=== PATIENT | female | born 1945 | race Caucasian/White ===

== ENCOUNTER 2016-10-06 05:08 | Inpatient (IN) | payer OTHER ==
[2016-09-10 11:23] VITALS: BMI 28.0
--- NOTE | 2016-09-10 11:49 | PAT Medication Instructions ---
Service Date Sep 10, 2016. Current Home Medication List Acetaminophen Tab (Tylenol), 650 MG PO PRN Ibuprofen (Advil), 400 MG PO PRN Ranitidine (Zantac), 150 MG PO HS PRN for Heartburn Medication Instructions For Your Scheduled Surgery - Hold the following medications morning of the surgery: Ibuprofen (Advil), 400 MG PO PRN (not told to stop by surgeon) - Take the following medications the morning of surgery with a sip of water: Acetaminophen Tab (Tylenol), 650 MG PO PRN (if needed) - Take the following medications as scheduled the night before surgery: Ranitidine (Zantac), 150 MG PO HS PRN for Heartburn Acetaminophen Tab (Tylenol), 650 MG PO PRN (if needed) If you have any questions please call us at [phone] or [phone] ( Leonie) or [phone]
[2016-09-10 12:20] LABS: PARTIAL THROMBOPLASTIN RATIO 1.1; PROTHROMBIN TIME (PATIENT) 10.7 SECONDS (9.0-12.0)
[2016-09-10 12:56] LABS: BUN/CREATININE RATIO 16.8 (10-20); CREATININE 0.85 mg/dl (0.60-1.20); POTASSIUM 3.9 mmol/L (3.5-5.1)
--- NOTE | 2016-09-11 11:04 | HISTORY & PHYSICAL EXAMINATION ---
DATE OF ADMISSION: 10/06/2016 CHIEF COMPLAINT: Left knee pain. HISTORY OF PRESENT ILLNESS: This 71-year-old female presents to clinic for preoperative history and physical. The patient complains of 5-10 year history of persistent left knee pain that has increased over the past several months with failed conservative treatment including physical therapy, viscosupplementation, nonsteroidal anti-inflammatory use and steroid injections. The patient states the pain is affecting her gait, causing her to limp at times. The patient also states that the pain is most severe in the morning when she wakes; however, she denies any numbness or tingling in the left lower extremity at this time. The patient states she previously had a right total knee arthroplasty performed by Dr. Bain in February 2016 and feels that it is doing very well. At this time, she denies chest pain, shortness of breath, fever, chills, sweats, nausea, vomiting or diarrhea. PAST SURGICAL HISTORY: Right total knee arthroplasty, right carpal tunnel release, tonsillectomy/adenoidectomy, wisdom tooth extraction, breast biopsy, cholecystectomy, left shoulder arthroscopy and bilateral cataract removal. PAST MEDICAL HISTORY: Gastroesophageal reflux and hyperlipidemia. FAMILY HISTORY: Father, colon cancer, coronary artery bypass grafting, and status post myocardial infarction. Mother, COPD. Sister, multiple sclerosis. ALLERGIES: The patient has no known drug allergies. CURRENT MEDICATIONS TAKEN: Ranitidine 75 mg oral tablet 1 tab twice daily and amoxicillin 500 mg oral tablet 4 tabs 1 hour prior to dental procedures. SOCIAL HISTORY: The patient denies any history of smoking, alcohol or illicit drug use. PHYSICAL EXAMINATION: SKIN: The patient's skin is normal in appearance with no open skin lesions or discharge. EYES: Pupils are equal and reactive to light and accommodating. Extraocular movements are intact. EARS: Canals are clear of cerumen. Tympanic membranes are intact bilaterally with no bulging or effusions. NOSE: Turbinates pink and boggy in appearance. No appreciable rhinorrhea. THROAT: Posterior oropharynx is clear without signs of edema, erythema or exudate. CARDIOVASCULAR: The patient has a regular rate and rhythm with no murmurs or gallops appreciated. LUNGS: Auscultation of the lung mullen reveals clear breath sounds throughout with no wheezing, rales or rhonchi. ABDOMEN: Minimally obese, nondistended, and nontender with hypoactive bowel sounds. EXTREMITIES: Left knee: The patient is able to extend 10 degrees and flex to 118 degrees. She has marked crepitation with active and passive range of motion. She experienced medial and lateral joint line tenderness upon palpation when the knee is placed in a flexed position. Her left patella is nonmobile due to arthritic changes within the patellofemoral joint. The patient does experience referred knee pain with dorsiflexion against resistance, left foot. Otherwise, there is no edema, erythema, ecchymosis, warmth or palpable bony deformity. No varus or valgus laxity. Negative AP drawer sign. Negative Tari test. Her left calf is soft and supple, nontender to palpation and she experiences no referred knee pain with plantar flexion against resistance. The patient is neurovascularly intact in her left lower extremity. Peripheral pulses are palpable and capillary refill is brisk. All other extremities are normal in appearance with appropriate range of motion and strength. NEUROLOGICAL: Cranial nerves II-XII are intact with no motor or sensory deficit. PSYCHOLOGICAL AND GENERAL: The patient is alert and oriented x3 with proper grooming and hygiene. DIAGNOSIS: Left knee osteoarthritis. PROCEDURE: Left total knee arthroplasty. RADIOGRAPHIC IMAGING: Images show an end-stage tricompartmental degenerative arthritis of the right knee joint with [id number] contact. PLAN: The patient is scheduled to undergo this procedure with Dr. Devon Bain at [facility] on 10/06/2016. Risks and complications of the surgery such as infection, bleeding, pain, scarring, nerve and blood vessel damage, weakness, wound problems, stiffness, incomplete relief of symptoms, heart attack, stroke, , hardware failure, loosening wear fracture, blood clots, and embolism were explained to the patient. She understands and agrees. Written consent to perform the procedure was obtained. We will also obtain a preoperative medical clearance from the patient's primary care provider, Dr. Yeung along with a chest x-ray, EKG, PT, INR, PTT, complete metabolic panel and CBC with differential. The patient states she will obtain the necessary testing today before preanesthesia clearance appointment. The patient states that she has a walker at home from her previous right total knee arthroplasty and will bring it with her to the hospital on the day of surgery. The patient was advised that her postoperative followup with Dr. Bain will be scheduled for 10/20/2016 at 02:00 p.m. The patient states that she will do her physical therapy at [facility] for 2 weeks postoperatively and then will continue in the physical therapy department at [facility] for 4-6 additional weeks. The patient was advised that she will be on Coumadin for 6 weeks postoperatively and she will be provided with prescriptions for the medication upon discharge from the hospital. She will also use CLAIRE stockings for 6 weeks to help prevent blood clots and embolism. The patient will need biweekly INR checks while she is on the Coumadin therapy. She was also advised that she will be provided with [place] for postoperative pain medication upon discharge from the hospital. The patient was given paperwork for a handicap placard that she may obtain for her vehicle after surgery. The patient states she did not need this after her last knee replacement, but states that she will discuss this with her daughter and decide whether they will obtain one. Otherwise, the patient verbalized understanding of all information provided at today's visit, thanks us for the care she is receiving at our clinic and states that if she has additional questions or concerns that should arise prior to her scheduled procedure date, she will contact the clinic.
[2016-10-06] VITALS (11 sets, daily range): BP systolic 114–158; BP diastolic 74–85; PULSE 80–94; TEMP 36.3–36.5; O2SAT 2–100; Ht 165.1 cm; Wt 77.5 kg
[~2016-10-06] VITALS: Ht 165.1 cm; Wt 77.5 kg
[~2016-10-06 05:08] MED LIST: ACET325T96 PO; IBUP-1050 PO; ZNTT/150 PO
[2016-10-06] MEDS ORDERED: BUPIVACAINE LIPOSOME 266 MG, BUPIVACAINE/EPINEPHRINE INJ 50 ML, SODIUM CHLORIDE 0.9% PF... INFIL SCH ×3 (06:00)
[2016-10-06] MEDS ORDERED: TRAMADOL HCL 50 MG TAB PO SCH (06:00)
[2016-10-06] MEDS ORDERED: ACETAMINOPHEN 500 MG TAB PO SCH (06:00)
[2016-10-06] MEDS ORDERED: CeleBREX 200 MG CAP PO SCH (06:00)
[2016-10-06] MEDS ORDERED: OXYCODONE HCL 10 MG TABCR (OXYCONTIN) PO SCH (06:00)
[2016-10-06] MEDS: TRANEXAMIC ACID INJ 1,000 MG in SODIUM CHLORIDE 0.9% 100ML 100 ML IV SCH ×2 (06:00→06:30)
[2016-10-06] MEDS ORDERED: LACTATED RINGER'S 1000ML 1,000 ML IV SCH (06:00)
[2016-10-06] MEDS ORDERED: CLONIDINE HCL 0.1 MG/24 HR TRANSDERM SYS TD SCH (06:00)
[2016-10-06] MEDS ORDERED: CEFAZOLIN 1000MG/55 ML D5W 55 ML IV SCH (06:00)
[2016-10-06] MEDS ORDERED: DEXAMETHASONE 4 MG TAB PO SCH (06:00)
[2016-10-06] MEDS ORDERED: LACTATED RINGER'S 1000ML IV SCH (06:00)
[2016-10-06] MEDS ORDERED: GABAPENTIN 300 MG CAP PO SCH (06:00)
[2016-10-06] MEDS ORDERED: LACTATED RINGER'S 500 ML IV SCH (06:00)
[2016-10-06] MEDS ORDERED: BUPIVACAINE 0.5 % 5 MG/1 ML PF 10ML VIAL ONE (06:26)
[2016-10-06] MEDS ORDERED: FENTANYL CITRATE INJ 50 MCG/1 ML 2 ML VIAL ONE (06:38)
[2016-10-06] MEDS ORDERED: MIDAZOLAM HCL 1 MG/ML 2ML VIAL ONE (06:38)
[2016-10-06] MEDS ORDERED: BACITRACIN 50000 UNIT VIAL ONE (06:40)
[2016-10-06] MEDS ORDERED: SODIUM CHLORIDE 0.9% PF 50 ML VIAL ONE ×2 (06:40→07:40)
[2016-10-06] MEDS ORDERED: BUPIVACAINE/EPINEPHRINE 0.25% 1:200,000 30 ML VIAL ONE ×2 (06:40→07:40)
[2016-10-06] MEDS ORDERED: BUPIVACAINE LIPOSOME 1/3% 266 MG/20 ML VIAL INFIL ONE (06:41)
--- NOTE | 2016-10-06 06:41 | History & Physical Bridge Note ---
H&P Re-Evaluation Bridge Note: I have examined the patient, reviewed the History & Physical and in the interval since the performance of the History & Physical I have noted the following changes of clinical significance: No changes noted
[2016-10-06] MEDS ORDERED: BUPIVACAINE 0.25% 30 ML VIAL ONE (06:50)
[2016-10-06] MEDS ORDERED: EpHEDrine SULFATE INJ 50 MG/ML AMP IV PRN (07:15)
[2016-10-06] MEDS ORDERED: FENTANYL CITRATE INJ 50 MCG/1 ML 2 ML VIAL IV PRN (07:15)
[2016-10-06] MEDS ORDERED: LIDOCAINE HCL 2% 2 ML VIAL (20MG/ML) ONE (07:15)
[2016-10-06] MEDS ORDERED: ATROPINE SULFATE 0.1 MG/ML 5ML SYR IV PRN (07:15)
[2016-10-06] MEDS ORDERED: ONDANSETRON INJ 2 MG/ML 2 ML VIAL ONE (07:15)
[2016-10-06] MEDS ORDERED: ONDANSETRON INJ 2 MG/ML 2 ML VIAL IV PRN ×2 (07:15→09:45)
[2016-10-06] MEDS ORDERED: PROPOFOL IV EMULSION 10 MG/ML 20 ML VIAL IV ONE ×3 (07:15→09:05)
[2016-10-06] MEDS ORDERED: CEFAZOLIN SOD 1 GM VIAL ONE (07:35)
[2016-10-06] MEDS ORDERED: EpHEDrine SULFATE 50MG/5ML SYR ONE (08:44)
--- NOTE | 2016-10-06 09:32 | [facility] Post Operative Brief Note ---
Immediate Operative Summary Operative Date Oct 06, 2016. Pre-Operative Diagnosis Left Knee Osteoarthritis Post-Operative Diagnosis Left Knee Osteoarthritis Procedure(s) Performed Left Total Knee Arthroplasty Surgeon Dr. Devon Bain Batch Still Operator Surgeon(s) Samantha Rodriguez PA-C Estimated Blood Loss 20ML Findings medial knee OA Specimens A. Left Knee Bone and Tissue Drains 0 Anesthesia spinal with sedation Complication(s) None Disposition Recovery Room / PACU
--- NOTE | 2016-10-06 09:43 | [facility] Operative Report ---
Operative Report Operative Date Oct 06, 2016. Pre-Operative Diagnosis Left Knee Osteoarthritis Post-Operative Diagnosis Left knee osteoarthritis Procedure(s) Performed Left total knee arthroplasty Surgeon Dr. Devon Bain Identification Officer Surgeon(s) Samantha Rodriguez PA-C Estimated Blood Loss 20ML Findings DJD left knee Specimens A. Left Knee Bone and Tissue Drains 0 Anesthesia spinal with sedation Complication(s) None Disposition Recovery Room / PACU Indications Patient is a 71 year old female, with complaints of worsening left knee pain, failed conservative treatment. X-rays obtained, found to have Severe DJD left knee. Surgical intervention discussed, she wished to proceed with left total knee arthroplasty. Risks/complications discussed, informed consent obtained. Description of Procedure Patient was taken to the operating room, under spinal anesthesia with peripheral nerve block. She was given 2gm IV Ancef for surgical prophylaxis. Time out performed, prepped and draped in routine sterile fashion. I was present the entire case, please see Dr. Bain's operative report for further detail. Patient was awakened and taken to the recovery room in stable condition. I attest to the content of the Intraoperative Record and any orders documented therein. Any exceptions are noted below.
[2016-10-06] MEDS ORDERED: MoRPHine SULFATE 2 MG/ML CARP IV PRN (09:45)
[2016-10-06] MEDS ORDERED: ALUMINUM/MAGNESIUM/SIMETH (MAALOX MAX) 30 ML UDC PO PRN (09:45)
[2016-10-06] MEDS ORDERED: ACETAMINOPHEN 325 MG TAB PO PRN (09:45)
[2016-10-06] MEDS ORDERED: KETOROLAC TROMETHAMINE 30 MG/ML VIAL IV. PRN (09:45)
[2016-10-06] MEDS ORDERED: BISACODYL 10 MG SUPP PR PRN (09:45)
[2016-10-06] MEDS ORDERED: SOD PHOSPHATE/SOD BIPHOSPHATE ENEMA 132 ML BTL PR PRN (09:45)
[2016-10-06] MEDS ORDERED: MAGNESIUM HYDROXIDE SUSP 30 ML UDC PO PRN (09:45)
--- NOTE | 2016-10-06 10:18 | DIAGNOSTIC IMAGING REPORT ---
LEFT KNEE 1 OR 2 VIEWS ROUTINE CLINICAL HISTORY: Postop knee arthroplasty COMPARISON: None. DISCUSSION: There are postsurgical changes of total left knee arthroplasty and patellar resurfacing. The femoral and tibial components appear well seated. There are overlying skin enmanuel. There is air within the soft tissues consistent with the history of recent surgery. IMPRESSION: Postsurgical changes of a total left knee arthroplasty. Electronically signed by: Bret Fernando M.D. 10/06/2016 10:17 AM Dictated Date/Time: 10/06/2016 10:16 AM
--- NOTE | 2016-10-06 10:22 | Anesthesiology Progress Note ---
Anesthesia Post Op Note Date & Time Oct 06, 2016 at 10:22 Vital Signs Pain Intensity: 0 Vital Signs Past 12 Hours Date Time Temp Pulse Resp B/P Pulse Ox O2 Delivery O2 Flow Rate FiO2 10/06/16 10:10 68 14 116/66 100 Nasal Cannula 2 10/06/16 10:00 69 13 116/64 100 Nasal Cannula 2 10/06/16 09:50 71 11 113/66 100 Nasal Cannula 2 10/06/16 09:43 36.4 73 14 117/64 99 Nasal Cannula 2 10/06/16 05:55 36.5 80 18 158/83 97 Room Air Notes Mental Status: alert / awake / arousable, participated in evaluation Pt Amnestic to Procedure: Yes Nausea / Vomiting: adequately controlled Pain: adequately controlled Airway Patency, RR, SpO2: stable & adequate BP & HR: stable & adequate Hydration State: stable & adequate Neuraxial Anesthesia: was administered, sensory block is resolving Anesthetic Complications: no major complications apparent
--- NOTE | 2016-10-06 10:49 | OPERATIVE REPORT ---
DATE OF OPERATION: 10/06/2016 PREOPERATIVE DIAGNOSIS: Left knee arthritis. POSTOPERATIVE DIAGNOSIS: Same. PROCEDURE: Cemented left total knee arthroplasty. SURGEON: Dr. Bain. BIOINFORMATICS SUPPORT SPECIALIST: Samantha Rodriguez. No resident or fellow available. ANESTHESIA: Spinal with sedation and nerve block. INDICATIONS OF PROCEDURE: The patient is a 71-year-old female with severe osteoarthritis of her left knee medial compartment refractory to nonsurgical methods of management. She is status post a successful contralateral total knee replacement. PROCEDURE IN DETAIL: Informed consent was obtained. The patient identified as Swetha Vera. She identified the operative site as the left knee. I marked with my initials. A preop surgical time out was performed. A preop dose of IV antibiotics was given. She was taken to the operating room, positioned supine on the operating room table. Spinal anesthetic, nerve block and sedation were given. A tourniquet was applied to the left thigh. No Grover was inserted. The examination showed range 0/7/125. She had 1+ LCL laxity in mid position, 1+ MCL laxity in mid position. There is not any effusion, varus deformity was present. The left knee was then prepped and draped including the foot in the usual sterile fashion. DVT prophylaxis intraoperatively with foot pumps, postoperatively with early mobility. She received preoperative dose and postoperative dose of tranexamic acid. Exparel was injected into the knee at the conclusion of the operation using the moving needle technique throughout all the exposed tissues. Moist sponges were applied over the soft tissues and copious irrigation was performed to keep the soft tissues moist and healthy. A tourniquet was applied to the left thigh. The limb was exsanguinated with the Esmarch, tourniquet inflated to 225 mmHg. The tourniquet was let down after 90 minutes of inflation. Meticulous hemostasis was then performed. A midline incision was made approximately 20 cm in length mirroring the contralateral side. This was followed by medial parapatellar arthrotomy, medial release of the tibia, resection of marginal osteophytes, resection of the cruciate ligaments and menisci and release of the synovial reflection in the lateral gutter. The retropatellar fat pad was also resected. There were grade 3 changes of the patella with marginal osteophytes. The lateral compartment was fairly normal, but there were severe osteoarthritis with 2-2.5 cm diameter areas of eburnated bone in the medial compartment of the knee. The tibia was subluxated and a steamboat pilot hole was made into the proximal tibia in line with the shaft of the femur just anterior to the lateral tibial spine. The alignment guide was inserted and this was followed by pinning it in place after aligning it for a 10 mm resection laterally corresponding to a 2 mm resection medially. The extramedullary alignment lin was utilized confirming slope and alignment which intersected the second ray and bisected the ankle joint. A 0 degree block was utilized and the cut was made and sized to 2.5. Marginal osteophytes were removed. The lateral margin of the tibia was defined. The patellar tendon was protected. Sales Agent hole was drilled into the distal femur followed by insertion of the distal femoral cutting block, left knee 7 degree valgus, 12 mm thick cut. This cut was made and the extension gap was a symmetric 10. The transepicondylar axis and Whitesides line were marked out. The sizing block was applied and sized to a 3. The external rotation holes were made which corresponded to the epicondylar axis. The block was pinned into place and the cuts were made, protecting the collateral ligaments. The box cutting guide was applied, lateralized and that cut was made. The back of the knee was inspected for osteophytes which were removed medially and laterally. There were no loose bodies. The flexion gap was a trace bit lax on the lateral side by approximately 2 mm, but otherwise symmetric at 90 degrees. The trial femur was inserted. The tibia was aligned, pinned into place and the keel was drilled and punched. The trial polyethylene 10 mm thick was inserted. The patella was prepared using the patellar clamp. It measured 23.5 mm in thickness. The guide was set to preserve 14.5 mm of bone which ended up being about 13.5. Composite patellar thickness at the end of the case was 23.5 mm matching the previous. The patella was aligned, distalized and lateralized and the lug holes were drilled. Patellar tracking was fine with the no hands technique. The canals were plugged. Exparel was injected into the back of the knee. The bony surfaces were copiously irrigated with pulse lavage. They were then dried. Two bags of Simplex P cement were mixed and while in a doughy state, the femur, patella and tibia were cemented into place. The knee was held in full extension until the cement had hardened and the remainder of the Exparel was injected. Tourniquet was let down after 90 minutes of inflation. There was minimal bleeding which was then controlled with electrocautery. Trialing showed full extension, intact stability at full extension, 1+ laxity, LCL in mid position and trace LCL laxity about 2 mm at 90 degrees of flexion. The final polyethylene component was then inserted after irrigating the knee and inspecting the back of the knee for cement and bleeding. Patellar tracking was fine with the no hands technique. Irrigation was performed. The extensor mechanism was closed above the equator with interrupted #2 FiberWire and below the equator of the patella with running #1 locked Vicryl suture. The skin was closed in layers with 0 and 2-0 Vicryl and enmanuel on the skin. Leg was cleaned with wet and dry sponges and a soft sterile dressing was applied along with a full length Rik wrap from the toes to the hip. The gravity assisted flexion with the extensor mechanism closed was 125 degrees. The patient was awakened from anesthesia without difficulty, taken to recovery in stable condition. There were no complications. The resected bone was sent for specimen. Counts were correct at the end of case. Blood loss was approximately 20 mL. At the conclusion of the operation, I spoke to the patient's family and informed them of my findings. Postoperative instructions were given. She will plan on a 3-night stay to go to a long-term facility. She will be placed on Coumadin and will be rehabilitated according to the total knee rehab protocol. Components inserted were identical to the opposite side. J\T\J PFC sigma rotating platform knee, a size 3 left posterior stabilized femoral component, a size 2.5 keeled mobile bearing tibial tray, a 38 3 peg oval dome patella and a size 3 10 mm thick RP posterior stabilized polyethylene insert. Extraneous cement was removed from the knee. I attest to the content of the Intraoperative Record and any orders documented therein. Any exceptio ns are noted below.
[2016-10-06] MEDS: D5W AND 1/2NSS + 20MEQ KCL 1,000 ML IV SCH ×2 (12:13→20:58)
[2016-10-06] MEDS: CEFAZOLIN IV 1,000 MG in DEXTROSE 5% 50ML 50 ML IV SCH ×2 (13:30→22:20)
[2016-10-06] MEDS ORDERED: WARFARIN SOD 5 MG TAB PO SCH (16:00)
--- NOTE | 2016-10-06 16:39 | Orthopedic Progress Note ---
Orthopedic Progress Note Date of Service Oct 06, 2016. Subjective Reports: complaints, feeling well, Denies: SOB, calf pain, chest pain, nausea / vomiting Additional Notes: States has some mild pain and some dizziness with sitting or standing. tolerated regular diet for lunch. has not had pain medication. Objective calves soft nontender, N/V intact, capillary refill less than 2 sec., dressing C /D/I, A&O x3, toes mobile Knee immobilizer on left knee, foot pumps on lower extremities Date Time Temp Pulse Resp B/P Pulse Ox O2 Delivery O2 Flow Rate FiO2 10/06/16 15:00 36.5 94 16 119/74 98 Nasal Cannula 2.0 10/06/16 13:46 86 16 115/74 99 Nasal Cannula 2.0 10/06/16 12:53 90 16 125/80 100 Nasal Cannula 2.0 10/06/16 12:43 89 16 126/80 100 Nasal Cannula 2.0 10/06/16 11:45 83 16 146/85 100 Nasal Cannula 2.0 10/06/16 11:12 80 16 114/74 100 Nasal Cannula 2.0 10/06/16 11:10 36.3 81 16 121/76 95 Nasal Cannula 2.0 10/06/16 11:03 95 Nasal Cannula 2.0 10/06/16 10:59 95 Nasal Cannula 2.0 10/06/16 10:30 36.1 76 12 128/77 100 Nasal Cannula 2 10/06/16 10:20 36.1 73 12 132/68 100 Nasal Cannula 2 10/06/16 10:10 68 14 116/66 100 Nasal Cannula 2 10/06/16 10:00 69 13 116/64 100 Nasal Cannula 2 10/06/16 09:50 71 11 113/66 100 Nasal Cannula 2 10/06/16 09:43 36.4 73 14 117/64 99 Nasal Cannula 2 10/06/16 05:55 36.5 80 18 158/83 97 Room Air Assessment & Plan Assessment: Left TKA today with Dr. Bain Plan: Encouraged use of pain medication as needed. She states that she will take something after dinner. Encouraged ankle pumps and exercises in bed. PT/OT WBAT with knee immobilizer and walker when out of bed. Regular diet. post op x-rays reviewed Ice to knee as needed. Coumadin to start tonight for DVT prophylaxis along with Teds/AV impulse boots. Will recheck in AM. Plan for discharge to [facility] in 2-3 days. All questions answered, will discuss findings with Dr. Bain. Discharge Planning Discharge Planning: correction facility ([facility]) DVT Prophylaxis: Coumadin Therapy: Physical Therapy
[2016-10-06] MEDS: TRAMADOL HCL 50 MG TAB PO PRN (16:58)
[2016-10-06] MEDS: DOCUSATE SODIUM 100 MG CAP PO SCH (20:58)
[2016-10-06] MEDS: OXYCODONE HCL IR 5 MG TAB (IMMEDIATE RELEASE) PO PRN (21:03)
[2016-10-07] VITALS (9 sets, daily range): BP systolic 100–122; BP diastolic 59–79; PULSE 73–98; TEMP 36.4–37.1; O2SAT 87–99
[2016-10-07] MEDS: TRAMADOL HCL 50 MG TAB PO PRN ×3 (00:45→16:08)
[2016-10-07] MEDS: OXYCODONE HCL IR 5 MG TAB (IMMEDIATE RELEASE) PO PRN ×3 (01:39→20:37)
[2016-10-07 05:50] LABS: HEMATOCRIT 33.4 % (37-47); MEAN CELL VOLUME 87.4 fL (80-100); MEAN PLATELET VOLUME 10.4 fL (7.4-10.4); PLATELET COUNT 234 K/uL (130-400); RED BLOOD COUNT 3.82 M/uL (4.2-5.4); WHITE BLOOD COUNT 8.78 K/uL (4.8-10.8)
[2016-10-07 06:00] LABS: INR 1.1 (0.9-1.1); PROTHROMBIN TIME (PATIENT) 11.7 SECONDS (9.0-12.0)
[2016-10-07 06:25] LABS: BUN/CREATININE RATIO 15.4 (10-20); CALCIUM 8.2 mg/dl (8.5-10.1); CREATININE 0.76 mg/dl (0.60-1.20)
[2016-10-07] MEDS: D5W AND 1/2NSS + 20MEQ KCL 1,000 ML IV SCH (07:01)
[2016-10-07] MEDS ORDERED: DEXAMETHASONE 4 MG TAB PO SCH (07:30)
--- NOTE | 2016-10-07 08:10 | Discharge Instructions ---
Discharge Instructions Date of Service Oct 07, 2016. Admission Reason for Admission: Left Knee Osteoarthritis Discharge Discharge Diagnosis / Problem: Left knee DJD Discharge Goals Goal(s): Decrease discomfort, Improve function, Increase independence Activity Recommendations Activity Level: Assistance Required Therapies: Physical Therapy, Weight Bearing Status (WBAT LLE) Weightbearing Status: Left weightbearing (as tolerated) . Additional Information Patient informed of condition: Yes Advance Directives: No DNR: No Level of Care: [facility] ([facility]) Communicable Disease: No Prognosis: Stable Instructions / Follow-Up Instructions / Follow-Up New Medicine: * You will likely be taking one or more of these medications: 1. Coumadin (Warfarin) - You will be on Coumadin for 6 weeks after surgery to prevent blood clots. The PT/INR blood test which measures the "thinness" of your blood will need to be done every Wednesday and while on Coumadin. My office will contact you after every test to tell you how much Coumadin to take. If you do not hear from my office within 24 hours of the test, please call. Do not take anti-inflammatory pills (Advil or Aleve) while on Coumadin. Aspirin, 81 mg is OK. 2. Percocet - Take, as directed, when you need it, every four to six hours to control your pain. 3. Colace & Senokot - Take to prevent constipation which can be caused by narcotics. These can be bought [id number] at the pharmacy * The most common side effects of pain medicine and iron are nausea and constipation. If nausea or constipation is too much of a problem or if you have any questions about your new medicines or doses, call [facility] at . We will try to help you manage these issues. VERY IMPORTANT TO READ AND REVIEW" Blood Clots and Blood Thinning Medicine: * You are given Coumadin during the immediate post-operative period to lessen the risk of blood clots forming in your legs and/or lungs. Coumadin is usually given for six weeks after surgery. * The prescription is for 2 mg tablets. At discharge, you should understand your dose and take it all at the same time every day, preferably after dinner. * You need to get your blood checked every Wednesday and for six weeks or as directed. * If your dose needs to change, we will call you. Do not take your medication on the day of the blood test until we call you. Physical Therapy: * Do your physical therapy at home. These are the exercises you learned while in the hospital (quad sets, leg raises, calf pumps, gluteal squeezes, knee bending, and heel props.) You should do these exercises 3-4 times per day. * You will either go to inpatient rehab ([facility]), home with Home Therapy and nursing or home with outpatient rehab. You should do rehab with the therapist 2-3 times per week. You should do therapy on your own daily. * You may bear full weight on your leg with crutches or walker unless otherwise advised. Home Exercise: * You were shown a series of exercises (heel props, heel slides, etc.) in the hospital. Do these exercises three to four times each day including the exercises you were shown in physical therapy. Walking: * You may be up for short periods of time. Standing and walking for 1-2 hours at a time is usually okay. You should not stand or walk for excessive periods of time as this may cause increased pain and swelling. SELF CARE INSTRUCTIONS AFTER TOTAL KNEE REPLACEMENT A. You may need to continue a physical therapy program after discharge from the hospital. There are several options available to you. Your doctor will assist you in selecting the best one for you. 1. An out-patient facility 2 to 3 times a week for therapy or home therapy. 2. Continue working on all exercises taught to you in the hospital. Your goals should be to increase bending of your knee to 90 degrees and beyond and to fully straighten your knee. B. Your therapist will notify you when you are able to progress from a walker to a cane. C. Wear TEDS as much as possible.~ They may be removed at night for laundering. D. Do not place a pillow behind your knee when resting. A pillow at your ankle is okay. E. Ice your knee 15-20 minutes every 2-3 hours and elevate it above the level of your heart. F. You may shower on the fourth day after surgery using regular soap and water. Do not submerge until the wound is completely healed (approximately 2 weeks ). Until the fourth day after surgery, cover the incision/bandage with a bag or plastic wrap. G. Anyone who is touching your surgical incision area should wash their hands and wear gloves. H. Keep your incision covered with gauze pads under the CLAIRE hose until it is dry. VERY IMPORTANT TO READ AND REVIEW A. YOU WILL BE GIVEN AN ORDER AT DISCHARGE FOR PT/INR (BLOOD WORK). PLEASE HAVE THIS DONE INSTRUCTED. PLEASE CALL OUR OFFICE AFTER YOUR BLOODWORK IS COMPLETE SO WE CAN TRACK YOUR RESULTS. IF YOU ARE GOING TO OUTPATIENT PHYSICAL THERAPY, YOU WILL NEED TO GO TO OUTPATIENT TESTING TO HAVE IT DRAWN. B. There are a few signs you need to watch for after you are home. Call [facility] if you notice any of the followin. Increased severe knee pain. Some pain is expected especially when you exercise. 2. Increased swelling in your leg or knee; pain or swelling of the calf muscle in either lower leg. 3. Any fluid drainage from the incision. 4. Shortness of breath or chest pain. 5. Numbness and tingling in the surgical extremity C. Please call [facility] at if you have any concerns or questions about your operation or recovery. The doctor or his nurse will return your call promptly. D. Do not have any elective dental work or other elective procedures done for 6 weeks after your knee replacement. When you have any invasive procedure (dental cleaning, extraction, colonoscopy etc) performed, you will need to take antibiotics to prevent infection from developing in your artificial joint. Tell your other health care providers you have an artificial joint. My office will supply you with further information and the antibiotics. Call your doctor if: * Temperature above 101 degrees F. * Pain not relieved by pain medicine ordered. * Increased drainage or redness from incision. * Notify your doctor with any questions or concerns. Follow-up Visit: You will follow-up with Dr. Bain 10-14 days after surgery. The office number is . Avoid all tobacco products. If you need help to stop smoking, call [place] at . This is a free call. Current Hospital Diet Patient's current hospital diet: Regular Diet Discharge Diet Recommended Diet: Regular Diet Procedures Procedures Performed: Left Total Knee Arthroplasty Pending Studies Studies pending at discharge: no Physician Orders On Transfer Dressing Changes: Daily and PRN left knee Vital Signs: per routine Additional Orders: STAT PT/INR every Wednesday and . Please call results to Dr. Bain's office [phone]. Medical Emergencies . Who to Call and When: Medical Emergencies: If at any time you feel your situation is an emergency, please call 911 immediately. . Non-Emergent Contact Non-Emergency issues call your: Surgeon Call Non-Emergent contact if: temperature is above 101.5, your pain is not controlled, your pain is concerning you, wound has increased drainage, wound has increased pain, you have any medication questions . . "Provider Documentation" section prepared by Samantha Rodriguez. Core Measure Problem Core Measures: None VTE Core Measures Reason no anticoag overlap I/P: Treatment provided - N/A Reason no anticoag overlap @DC: Treatment provided - N/A
[2016-10-07] MEDS ORDERED: ULT50X PO (08:13)
[2016-10-07] MEDS ORDERED: TYL325X PO (08:13)
[2016-10-07] MEDS ORDERED: MULT-589 PO (08:13)
[2016-10-07] MEDS ORDERED: CLC100 PO (08:13)
[2016-10-07] MEDS ORDERED: OXYC-57 PO (08:13)
[2016-10-07] MEDS ORDERED: MOMLX PO (08:13)
--- NOTE | 2016-10-07 08:22 | Orthopedic Progress Note ---
Orthopedic Progress Note Date of Service Oct 07, 2016. Subjective Post OP Day: 1 Reports: feeling well, pain controlled w PO medications, Denies: SOB, calf pain , chest pain, complaints, light headedness, nausea / vomiting Additional Notes: Tolerating regular diet, states having some pain this morning. Objective calves soft nontender, N/V intact, capillary refill less than 2 sec., dressing C /D/I, A&O x3, toes mobile unable to independently SLR left leg this morning due to pain. Date Time Temp Pulse Resp B/P Pulse Ox O2 Delivery O2 Flow Rate FiO2 10/07/16 07:18 96 Nasal Cannula 1.0 10/07/16 07:18 36.4 89 18 100/59 87 Room Air 10/07/16 07:00 Nasal Cannula 1.0 10/07/16 03:30 37.1 73 16 107/67 98 Nasal Cannula 2.0 10/07/16 00:16 36.8 81 16 115/70 99 Nasal Cannula 2.0 10/06/16 22:10 Nasal Cannula 2.0 10/06/16 19:00 36.4 89 18 125/77 98 Nasal Cannula 2.0 10/06/16 15:00 36.5 94 16 119/74 98 Nasal Cannula 2.0 10/06/16 13:46 86 16 115/74 99 Nasal Cannula 2.0 10/06/16 12:53 90 16 125/80 100 Nasal Cannula 2.0 10/06/16 12:43 89 16 126/80 100 Nasal Cannula 2.0 10/06/16 11:45 83 16 146/85 100 Nasal Cannula 2.0 10/06/16 11:12 80 16 114/74 100 Nasal Cannula 2.0 10/06/16 11:10 36.3 81 16 121/76 95 Nasal Cannula 2.0 10/06/16 11:03 95 Nasal Cannula 2.0 10/06/16 10:59 95 Nasal Cannula 2.0 10/06/16 10:30 36.1 76 12 128/77 100 Nasal Cannula 2 10/06/16 10:20 36.1 73 12 132/68 100 Nasal Cannula 2 10/06/16 10:10 68 14 116/66 100 Nasal Cannula 2 10/06/16 10:00 69 13 116/64 100 Nasal Cannula 2 10/06/16 09:50 71 11 113/66 100 Nasal Cannula 2 10/06/16 09:43 36.4 73 14 117/64 99 Nasal Cannula 2 Laboratory Results 24 Hours: Test 10/07/16 05:15 Hematocrit 33.4 % Hemoglobin 10.7 g/dL Prothromb Time International Ratio 1.1 Prothrombin Time 11.7 SECONDS Assessment & Plan Assessment: POD 1 Left TKA Plan: Encouraged ankle pumps and exercises in bed. PT/OT today WBAT with knee immobilizer and walker when out of bed. Regular diet. Ice to knee as needed. Coumadin for DVT prophylaxis along with Teds/AV impulse boots. Plan for discharge to [facility] in 2-3 days. All questions answered, will discuss findings with Dr. Bain. Discharge Planning Discharge Planning: senior living facility ([facility]) DVT Prophylaxis: Coumadin Therapy: Physical Therapy
[2016-10-07] MEDS: MULTIVITAMIN TAB PO SCH (09:26)
[2016-10-07] MEDS: DOCUSATE SODIUM 100 MG CAP PO SCH ×2 (09:26→20:37)
[2016-10-07] MEDS: PANTOprazole SOD 40 MG TAB PO SCH (09:27)
--- NOTE | 2016-10-07 09:54 | Anesthesiology Progress Note ---
Anesthesia Post Op Note Date & Time Oct 07, 2016 at 09:53 Vital Signs Vital Signs Past 12 Hours Date Time Temp Pulse Resp B/P Pulse Ox O2 Delivery O2 Flow Rate FiO2 10/07/16 07:18 96 Nasal Cannula 1.0 10/07/16 07:18 36.4 89 18 100/59 87 Room Air 10/07/16 07:00 Nasal Cannula 1.0 10/07/16 03:30 37.1 73 16 107/67 98 Nasal Cannula 2.0 10/07/16 00:16 36.8 81 16 115/70 99 Nasal Cannula 2.0 10/06/16 22:10 Nasal Cannula 2.0 Notes Mental Status: alert / awake / arousable, participated in evaluation Pt Amnestic to Procedure: Yes Nausea / Vomiting: adequately controlled Pain: adequately controlled Airway Patency, RR, SpO2: stable & adequate BP & HR: stable & adequate Hydration State: stable & adequate Neuraxial Anesthesia: was administered, sensory block resolved Anesthetic Complications: no major complications apparent
--- NOTE | 2016-10-07 12:45 | PROGRESS NOTE ---
DATE: 10/07/2016 DATE: 10/07/2016. SUBJECTIVE: No problems reported. Resting comfortably in bed. She has been up with PT and nursing. OBJECTIVE: Afebrile, vital signs stable. Urine output is adequate. Labs are noted. Hematocrit 33. INR 1.1. Dorsalis pedis is 1+. Sensation normal, 5/5 ankle and toe plantar flexion and dorsiflexion strength. Her knee dressing clean and dry. IMPRESSION: Left knee replacement. PLAN: She is doing well. Continue to rehab per protocol. She has required IV pain medications to manage her pain as oral medications have not been sufficient. Lovenox will be added for DVT prophylaxis to supplement her subtherapeutic INR. We discussed plans for Jeremiah Klein. Plan on dressing change tomorrow. Continue ice, elevation, pain control, DVT prophylaxis.
[2016-10-07] MEDS ORDERED: WARFARIN SOD 5 MG TAB PO SCH (16:00)
[2016-10-07] MEDS: ENOXAPARIN 30 MG/0.3 ML SYR SQ SCH (18:09)
[2016-10-07] MEDS: CeleBREX 200 MG CAP PO SCH (20:37)
[2016-10-08] MEDS: OXYCODONE HCL IR 5 MG TAB (IMMEDIATE RELEASE) PO PRN ×5 (00:55→23:54)
[2016-10-08 05:53] LABS: INR 1.5 (0.9-1.1); PROTHROMBIN TIME (PATIENT) 16.6 SECONDS (9.0-12.0)
[2016-10-08 07:05] VITALS: BP 138/77; PULSE 92; TEMP 36.6; O2SAT 95
[2016-10-08] MEDS: ENOXAPARIN 30 MG/0.3 ML SYR SQ SCH ×2 (07:10→18:38)
[2016-10-08] MEDS: DOCUSATE SODIUM 100 MG CAP PO SCH ×2 (08:47→20:36)
[2016-10-08] MEDS: CeleBREX 200 MG CAP PO SCH ×2 (08:47→20:37)
[2016-10-08] MEDS: MULTIVITAMIN TAB PO SCH (08:47)
[2016-10-08] MEDS: PANTOprazole SOD 40 MG TAB PO SCH (08:47)
[2016-10-08] MEDS: TRAMADOL HCL 50 MG TAB PO PRN ×2 (08:52→20:36)
--- NOTE | 2016-10-08 09:20 | Progress Note ---
Orthopedic SOAP Note Subjective Date of Service: Oct 08, 2016. Post OP Day: 2 Reports: feeling well, pain controlled w PO medications, Denies: SOB, calf pain , chest pain, complaints, light headedness, nausea / vomiting, using PRODUCT DEVELOPMENT SPECIALIST Additional Notes: Reports less pain today Objective calves soft nontender, N/V intact, capillary refill less than 2 sec., dressing C /D/I, incision C/D/I, A&O x3, toes mobile Date Time Temp Pulse Resp B/P Pulse Ox O2 Delivery O2 Flow Rate FiO2 10/08/16 07:05 36.6 92 16 138/77 95 Room Air 10/08/16 00:50 Room Air 10/07/16 23:00 36.9 87 14 108/68 90 Room Air 10/07/16 20:50 93 Room Air 10/07/16 15:42 37.0 98 16 107/66 90 Room Air 10/07/16 11:24 94 93 10/07/16 11:21 36.8 86 16 122/79 94 Room Air 10/07/16 11:00 94 Room Air Laboratory Results 24 Hours: Test 10/08/16 05:10 Prothromb Time International Ratio 1.5 Prothrombin Time 16.6 SECONDS Assessment POD 2 Left TKA Plan Encouraged ankle pumps and exercises in bed. PT/OT today WBAT with knee immobilizer and walker when out of bed. Regular diet. pain control with PO medication Ice to knee as needed. Coumadin for DVT prophylaxis along with Teds/AV impulse boots. Plan for discharge to [facility] 10/09/16 All questions answered, will discuss findings with Dr. Bain.
[2016-10-08 15:12] VITALS: BP 119/75; PULSE 75; TEMP 36.6; O2SAT 96
[2016-10-08] MEDS ORDERED: WARFARIN SOD 3 MG TAB PO SCH (16:00)
--- NOTE | 2016-10-08 17:29 | PROGRESS NOTE ---
DATE: 10/08/2016 No problems reported, mild medial calf pain. Afebrile, vital signs stable. INR 1.5. She has trace pretibial edema. There is mild soreness of the medial calf. Perhaps some mild discomfort with Homans. There is no erythema. 1+ dorsalis pedis, 5/5 distal motor function. The knee is mildly swollen. No notable drainage or erythema. Left knee replacement. PLAN: Monitor calf pain for now. I think there is low likelihood that this would represent a DVT. It is fairly close to the back of the knee and could just be discomfort related to the posterior capsule. Continue Lovenox until her INR is therapeutic. Continue routine post-surgical care and PT. We will reassess tomorrow.
[2016-10-08 23:30] VITALS: BP 114/69; PULSE 92; TEMP 37; O2SAT 91
[2016-10-09 06:04] LABS: INR 1.5 (0.9-1.1); PROTHROMBIN TIME (PATIENT) 16.8 SECONDS (9.0-12.0)
[2016-10-09] MEDS: ENOXAPARIN 30 MG/0.3 ML SYR SQ SCH (06:37)
[2016-10-09] MEDS: OXYCODONE HCL IR 5 MG TAB (IMMEDIATE RELEASE) PO PRN (06:41)
[2016-10-09 06:59] VITALS: BP 106/66; PULSE 88; TEMP 36.7; O2SAT 91
[2016-10-09 08:10] VITALS: BP 118/70; PULSE 84; TEMP 36.9; O2SAT 95
[2016-10-09] MEDS ORDERED: LVNIS30 SQ (08:10)
[2016-10-09] MEDS ORDERED: CMD2 PO (08:10)
--- NOTE | 2016-10-09 08:25 | Progress Note ---
Orthopedic SOAP Note Subjective Date of Service: Oct 09, 2016. Post OP Day: 3 Reports: feeling well, pain controlled w PO medications, Denies: SOB, calf pain , chest pain, complaints, light headedness, nausea / vomiting, using CASTING AND PASTING SUPERVISOR Additional Notes: reports some calf tightness bilaterally, nothing new or worse, will order ultrasound prior discharge to r/o DVT, otherwise calves are soft, minimal tenderness, no swelling or erythema, NVI distally Objective calves soft nontender (more "tightness" versus painful. will order ultrasound accordingly prior today's transfer), N/V intact, capillary refill less than 2 sec., dressing C/D/I, incision C/D/I, A&O x3, toes mobile unable to complete straight leg raise fully, will continue to progress accordingly Date Time Temp Pulse Resp B/P Pulse Ox O2 Delivery O2 Flow Rate FiO2 10/09/16 08:10 36.9 84 17 118/70 95 Room Air 10/09/16 06:59 36.7 88 17 106/66 91 Room Air 10/08/16 23:50 Room Air 10/08/16 23:30 37.0 92 18 114/69 91 Room Air 10/08/16 15:12 36.6 75 18 119/75 96 Room Air 10/08/16 11:30 Room Air Laboratory Results 24 Hours: Test 10/09/16 05:11 Prothromb Time International Ratio 1.5 Prothrombin Time 16.8 SECONDS Assessment POD 3 Left TKA Plan Encouraged ankle pumps and exercises in bed. PT/OT today WBAT with knee immobilizer during ambulation and until quad function regained, use walker Regular diet. pain control with PO medication Ice to knee as needed. Coumadin for DVT prophylaxis along with Teds/AV impulse boots. Will required Lovenox as well over the weekend, INR subtherapeutic Plan for discharge to [facility] 10/09/16 All questions answered, will discuss findings with Dr. Bain. lower extremity ultrasound ordered regarding left calf pain/tightness to r/o DVT prior patient's transfer today
[2016-10-09] MEDS: PANTOprazole SOD 40 MG TAB PO SCH (08:47)
[2016-10-09] MEDS: CeleBREX 200 MG CAP PO SCH (08:47)
[2016-10-09] MEDS: MULTIVITAMIN TAB PO SCH (08:47)
[2016-10-09] MEDS: DOCUSATE SODIUM 100 MG CAP PO SCH (08:47)
[2016-10-09] MEDS: TRAMADOL HCL 50 MG TAB PO PRN (08:48)
[2016-10-09 09:11] VITALS: O2SAT 95
--- NOTE | 2016-10-09 10:36 | DIAGNOSTIC IMAGING REPORT ---
ADDENDUM Body and conclusion of the report should say left calf. Electronically signed by: Luis Love M.D. 10/09/2016 11:08 AM Dictated Date/Time: 10/09/2016 11:08 AM ORIGINAL REPORT Venous Doppler left leg LEFT VENOUS DOPP LOWER EXT UNILAT CLINICAL HISTORY: left calf pain, s/p Left TKA pain TECHNIQUE: Venous Doppler COMPARISON STUDY: None FINDINGS: Normal venous Doppler left leg. Within the right calf is an 6 x 3 cm complex collection possibly representing hematoma. IMPRESSION: 1. Study is negative for deep venous thrombosis. 2. 6 x 3 cm complex collection within the right calf possibly representing a intramuscular hematoma Electronically signed by: Luis Love M.D. 10/09/2016 10:34 AM Dictated Date/Time: 10/09/2016 10:33 AM
[2016-10-09 11:50] VITALS: BP 120/76; PULSE 94; O2SAT 99
[2016-10-09 11:51] VITALS: BP 112/60; PULSE 92; TEMP 37; O2SAT 96
--- NOTE | 2016-10-09 16:32 | Discharge Summary ---
Discharge Summary Date of Service Oct 09, 2016. Discharge Summary Admission Date: Oct 06, 2016 at 06:45 Discharge Date: Oct 09, 2016 Discharge Disposition: residential facility ([facility]) Principal Diagnosis: DJD left knee Procedures: Left TKA Consultations: physical therapy Pending Studies/Follow-Up: Follow up with Dr. Bain 10-14 days after surgery as scheduled. Medication Reconciliation New Medications: Oxycodone/Acetaminophen 5MG/325MG (Percocet 5MG/325MG) Tab 1-2 TABLETS PO Q4H PRN for Pain, #30 TAB Warfarin Sod (Coumadin) 2 Mg Tab 4 MG PO DAILY for 42 Days, #50 Acetaminophen (Tylenol) 325 Mg Tab 650 MG PO Q6H PRN for PAIN/TEMP GREATER THAN 38 C for 30 Days, #240 TAB Docusate Sodium (Docusate Sodium) 100 Mg Cap 100 MG PO BID for 30 Days, #60 CAP Enoxaparin (Lovenox) 30 Mg/0.3 Ml Inj 30 MG SQ Q12@0600,1800 for 5 Days, #5 SYR 1 Refill Take until INR greater than 1.8 Magnesium Hydroxide (Milk of Magnesia) 30 Ml Susp 30 ML PO Q6H PRN for Constipation for 30 Days, #100 Multivitamins (Daily Gabby) 1 Tab Tab 1 TAB PO QAM for 30 Days, #30 TAB Tramadol HCl (Tramadol HCl) 50 Mg Tab 50-100 MG PO Q4H PRN for Pain for 3 Days, #30 TAB 0 Refills Continued Medications: Ranitidine (Zantac) 150 Mg Tab 150 MG PO HS PRN for Heartburn, TAB Discontinued Medications: Acetaminophen Tab (Tylenol) 325 Mg Tab 650 MG PO PRN, TAB Ibuprofen (Advil) 200 Mg Tab 400 MG PO PRN, TAB Hospital Course Patient is a 71 year old female who was admitted to the hospital after undergoing a left total knee arthroplasty with Dr. Bain on 10/06/16. She tolerated the procedure well without any complications. She was given IV Ancef for surgical prophylaxis, which was continued for 24 hours post operatively. Her surgery was completed with spinal anesthesia and a peripheral nerve block. Post operatively she was allowed out of bed, weight bear as tolerated left lower extremity with the assistance of a walker. Pain medication was prescribed for post operative pain control. She tolerated a regular diet post operatively. She tolerated oral pain medications. She was placed on Coumadin for DVT prophylaxis with Lovenox bridge until her INR was therapeutic. She also had CLAIRE stockings and foot pumps during her inpatient stay. She complained of some mild left calf pain during her hospital stay. An left lower extremity ultrasound was completed on POD 3 prior to her discharge and was negative for DVT but was positive for intramuscular hematoma. Dressing changes were started POD 2 and her incision was clean, dry and intact. She was seen and evaluated by physical therapy daily and did well with the assistance of a walker. Discharge instructions were provided and she was discharged to [facility] on 10/09/16 in stable condition. Total time spent on discharge = This includes examination of the patient, discharge planning, medication reconciliation, and communication with other providers. Discharge Instructions Discharge Instructions Date of Service Oct 07, 2016. Admission Reason for Admission: Left Knee Osteoarthritis Discharge Discharge Diagnosis / Problem: Left knee DJD Discharge Goals Goal(s): Decrease discomfort, Improve function, Increase independence Activity Recommendations Activity Level: Assistance Required Therapies: Physical Therapy, Weight Bearing Status (WBAT LLE) Weightbearing Status: Left weightbearing (as tolerated) . Additional Information Patient informed of condition: Yes Advance Directives: No DNR: No Level of Care: Skilled ([facility]) Communicable Disease: No Prognosis: Stable Instructions / Follow-Up Instructions / Follow-Up New Medicine: * You will likely be taking one or more of these medications: 1. Coumadin (Warfarin) - You will be on Coumadin for 6 weeks after surgery to prevent blood clots. The PT/INR blood test which measures the "thinness" of your blood will need to be done every Wednesday and while on Coumadin. My office will contact you after every test to tell you how much Coumadin to take. If you do not hear from my office within 24 hours of the test, please call. Do not take anti-inflammatory pills (Advil or Aleve) while on Coumadin. Aspirin, 81 mg is OK. 2. Percocet - Take, as directed, when you need it, every four to six hours to control your pain. 3. Colace & Senokot - Take to prevent constipation which can be caused by narcotics. These can be bought [id number] at the pharmacy * The most common side effects of pain medicine and iron are nausea and constipation. If nausea or constipation is too much of a problem or if you have any questions about your new medicines or doses, call [facility] at . We will try to help you manage these issues. VERY IMPORTANT TO READ AND REVIEW" Blood Clots and Blood Thinning Medicine: * You are given Coumadin during the immediate post-operative period to lessen the risk of blood clots forming in your legs and/or lungs. Coumadin is usually given for six weeks after surgery. * The prescription is for 2 mg tablets. At discharge, you should understand your dose and take it all at the same time every day, preferably after dinner. * You need to get your blood checked every Wednesday and for six weeks or as directed. * If your dose needs to change, we will call you. Do not take your medication on the day of the blood test until we call you. Physical Therapy: * Do your physical therapy at home. These are the exercises you learned while in the hospital (quad sets, leg raises, calf pumps, gluteal squeezes, knee bending, and heel props.) You should do these exercises 3-4 times per day. * You will either go to inpatient rehab ([facility]), home with Home Therapy and nursing or home with outpatient rehab. You should do rehab with the therapist 2-3 times per week. You should do therapy on your own daily. * You may bear full weight on your leg with crutches or walker unless otherwise advised. Home Exercise: * You were shown a series of exercises (heel props, heel slides, etc.) in the hospital. Do these exercises three to four times each day including the exercises you were shown in physical therapy. Walking: * You may be up for short periods of time. Standing and walking for 1-2 hours at a time is usually okay. You should not stand or walk for excessive periods of time as this may cause increased pain and swelling. SELF CARE INSTRUCTIONS AFTER TOTAL KNEE REPLACEMENT A. You may need to continue a physical therapy program after discharge from the hospital. There are several options available to you. Your doctor will assist you in selecting the best one for you. 1. An out-patient facility 2 to 3 times a week for therapy or home therapy. 2. Continue working on all exercises taught to you in the hospital. Your goals should be to increase bending of your knee to 90 degrees and beyond and to fully straighten your knee. B. Your therapist will notify you when you are able to progress from a walker to a cane. C. Wear TEDS as much as possible.~ They may be removed at night for laundering. D. Do not place a pillow behind your knee when resting. A pillow at your ankle is okay. E. Ice your knee 15-20 minutes every 2-3 hours and elevate it above the level of your heart. F. You may shower on the fourth day after surgery using regular soap and water. Do not submerge until the wound is completely healed (approximately 2 weeks ). Until the fourth day after surgery, cover the incision/bandage with a bag or plastic wrap. G. Anyone who is touching your surgical incision area should wash their hands and wear gloves. H. Keep your incision covered with gauze pads under the CLAIRE hose until it is dry. VERY IMPORTANT TO READ AND REVIEW A. YOU WILL BE GIVEN AN ORDER AT DISCHARGE FOR PT/INR (BLOOD WORK). PLEASE HAVE THIS DONE INSTRUCTED. PLEASE CALL OUR OFFICE AFTER YOUR BLOODWORK IS COMPLETE SO WE CAN TRACK YOUR RESULTS. IF YOU ARE GOING TO OUTPATIENT PHYSICAL THERAPY, YOU WILL NEED TO GO TO OUTPATIENT TESTING TO HAVE IT DRAWN. B. There are a few signs you need to watch for after you are home. Call [facility] if you notice any of the followin. Increased severe knee pain. Some pain is expected especially when you exercise. 2. Increased swelling in your leg or knee; pain or swelling of the calf muscle in either lower leg. 3. Any fluid drainage from the incision. 4. Shortness of breath or chest pain. 5. Numbness and tingling in the surgical extremity C. Please call [facility] at if you have any concerns or questions about your operation or recovery. The doctor or his nurse will return your call promptly. D. Do not have any elective dental work or other elective procedures done for 6 weeks after your knee replacement. When you have any invasive procedure (dental cleaning, extraction, colonoscopy etc) performed, you will need to take antibiotics to prevent infection from developing in your artificial joint. Tell your other health care providers you have an artificial joint. My office will supply you with further information and the antibiotics. Call your doctor if: * Temperature above 101 degrees F. * Pain not relieved by pain medicine ordered. * Increased drainage or redness from incision. * Notify your doctor with any questions or concerns. Follow-up Visit: You will follow-up with Dr. Bain 10-14 days after surgery. The office number is . Avoid all tobacco products. If you need help to stop smoking, call [place]IT[facility] at . This is a free call. Current Hospital Diet Patient's current hospital diet: Regular Diet Discharge Diet Recommended Diet: Regular Diet Procedures Procedures Performed: Left Total Knee Arthroplasty Pending Studies Studies pending at discharge: no Physician Orders On Transfer Dressing Changes: Daily and PRN left knee Vital Signs: per routine Additional Orders: STAT PT/INR every Wednesday and . Please call results to Dr. Bain's office [phone]. Medical Emergencies . Who to Call and When: Medical Emergencies: If at any time you feel your situation is an emergency, please call 911 immediately. . Non-Emergent Contact Non-Emergency issues call your: Surgeon Call Non-Emergent contact if: temperature is above 101.5, your pain is not controlled, your pain is concerning you, wound has increased drainage, wound has increased pain, you have any medication questions . . "Provider Documentation" section prepared by Samantha Rodriguez. Core Measure Problem Core Measures: None VTE Core Measures Reason no anticoag overlap I/P: Treatment provided - N/A Reason no anticoag overlap @DC: Treatment provided - N/A
== END 2016-10-09 13:29 | DRG 470 ==
LOC: ENRESERVDT → ENRESERVTM → C.ACU 05:08 → C.3E 06:45
PROVIDERS: ADMIT Physical Medicine & Rehabilitation Sports Medicine; ATTEND Physical Medicine & Rehabilitation Sports Medicine
PROC: 0SRD0J9 Replacement of Left Knee Joint with Synthetic Substitute, Cemented, Open Approach (ICD-10-PCS; principal; 2016-10-06 07:00)
DX: M17.9 Osteoarthritis of knee, unspecified (principal); K21.9 Gastro-esophageal reflux disease without esophagitis; E78.5 Hyperlipidemia, unspecified; Z96.651 Presence of right artificial knee joint; Z80.0 Family history of malignant neoplasm of digestive organs; Z82.49 Family history of ischemic heart disease and other diseases of the circulatory system

== ENCOUNTER → 2016-11-06 | Outpatient (CLI) | payer OTHER ==
[~2016-11-06] MED LIST changes: -ACET325T96 PO; +CLC100 PO; +CMD2 PO; -IBUP-1050 PO; +LVNIS30 SQ; +MOMLX PO; +MULT-589 PO; +OXYC-57 PO; +TYL325X PO; +ULT50X PO
== END | disposition home or self-care (01) ==
LOC: C.RDSM 10:01
PROVIDERS: ATTEND Physical Medicine & Rehabilitation Sports Medicine
DX: Z96.651 Presence of right artificial knee joint (principal)

== ENCOUNTER → 2017-07-16 | Outpatient (CLI) | payer OTHER ==
[~2017-07-16] MED LIST changes: -OXYC-57 PO
== END | disposition home or self-care (01) ==
LOC: C.RDSM 09:00
PROVIDERS: ATTEND Physical Medicine & Rehabilitation Sports Medicine
DX: M25.561 Pain in right knee (principal); M79.604 Pain in right leg; Z96.651 Presence of right artificial knee joint

== ENCOUNTER → 2017-07-26 | Outpatient (CLI) | payer OTHER | END | disposition home or self-care (01) | LOC: C.LABSPEC 16:27 | PROVIDERS: ATTEND Physical Medicine & Rehabilitation Sports Medicine | DX: T84.84XA Pain due to internal orthopedic prosthetic devices, implants and grafts, initial encounter (principal); Y83.1 Surgical operation with implant of artificial internal device as the cause of abnormal reaction of the patient, or of later complication, without mention of misadventure at the time of the procedure ==

== ENCOUNTER → 2017-09-30 | Day surgery (SDC) | payer OTHER ==
[2017-09-21 14:56] VITALS: Ht 165.1 cm; Wt 77.3 kg
[~2017-09-30] VITALS: Ht 165.1 cm; Wt 77.3 kg
[~2017-09-30] MED LIST changes: -CLC100 PO; -CMD2 PO; +IOPAMIDOL INJ 61% 15 ML VIAL ONE; +LIDOCAINE HCL 1% MPF 5 ML VIAL ONE; -LVNIS30 SQ; -MOMLX PO; -MULT-589 PO; +NRN/300 PO; +RANI150T85 PO; +SODIUM CHLORIDE 0.9% INJ 10 ML VIAL ONE; -TYL325X PO; -ULT50X PO; -ZNTT/150 PO
--- NOTE | 2017-09-30 14:13 | [facility] Post Operative Brief Note ---
Immediate Operative Summary Operative Date Sep 30, 2017. Pre-Operative Diagnosis L4-5 foraminal steonsis with right L4 radiculopathy Post-Operative Diagnosis Same Procedure(s) Performed Lumbar Epidural Steroid Injection Surgeon Dr. Lena Garza Tower Director Surgeon(s) None Estimated Blood Loss 0 Findings Consistent with Post-Op Diagnosis Specimens NA Drains None Anesthesia Type Local Complication(s) none Disposition Disposition:
--- NOTE | 2017-09-30 14:15 | Discharge Instructions ---
Discharge Instructions Date of Service Sep 30, 2017. Visit Reason for Visit: Lumbar Radiculopathy, Other Biomechanical Lesions Discharge Discharge Diagnosis / Problem: Right leg pain Discharge Goals Goal(s): Decrease discomfort, Improve function Activity Recommendations Activity Limitations: resume your previous activity Anesthesia . Post Anesthesia Instructions: If you have had General Anesthesia or IV Sedation: * Do not drive today. * Resume driving when surgeon permits. * Do not make important decisions or sign legal documents today. * Call surgeon for: 1. Temperature elevations greater than 101 degrees F. 2. Uncontrollable pain. 3. Excessive bleeding. 4. Persistent nausea and vomiting. 5. Medication intolerance (nausea, vomiting or rash). * For nausea and vomiting use only clear liquids such as: tea, soda, bouillon until nausea subsides, then gradually increase diet as tolerated. * If you have any concerns or questions, call your surgeon's office. If physician is unavailable and it is an emergency, call 911 or go to the nearest emergency room. . Diet Recommendations Recommended Home Diet: resume previous diet Procedures Procedures Performed: Lumbar Epidural Steroid Injection Pending Studies Studies pending at discharge: no Medical Emergencies . Who to Call and When: Medical Emergencies: If at any time you feel your situation is an emergency, please call 911 immediately. . Non-Emergent Contact Non-Emergency issues call your: Specialist . . "Provider Documentation" section prepared by Jayant Garza. .
[2017-09-30 14:28] VITALS: BP 138/98; PULSE 85; O2SAT 97
--- NOTE | 2017-09-30 19:24 | OPERATIVE REPORT ---
DATE OF OPERATION: 09/30/2017 PREOPERATIVE DIAGNOSIS: L4-L5 foraminal stenosis with right L4 radiculopathy. POSTOPERATIVE DIAGNOSIS: Same. PROCEDURE: Right paramedian L4-L5 intralaminar epidural steroid injection under fluoroscopic guidance. INDICATIONS: The patient is a 72-year-old female who presents today with a 2-year history of radicular pain that has not responded to conservative measures. She presents for an epidural injection to provide her with relief of function limiting pain. PHYSICAL EXAMINATION: Pleasant female seated comfortably. She has some mild reproduction of pain with flexion and extension of lower spine and buttocks area. She has normal lower extremity strength. Negative seated straight leg raises. Intact sensation proximally at L4, L5, S1 dermatomes. Maneuvers, negative seated straight leg raises. CONSENT: Verbal and written consent was obtained from patient. Risks and benefits were reviewed. Risks include but not limited to, epidural abscess, epidural hematoma, allergic reaction, dural puncture. The patient wishes to proceed. DESCRIPTION OF PROCEDURE: The patient was taken back to the special procedures room of [facility]. She was maintained in prone position. Backside was cleansed with Betadine x3 and a dry sterile dressing was applied. Fluoroscope was used to identify L4-L5 intralaminar space and overlying skin on the right side was anesthetized with 4 mL of lidocaine 1% with a 25 gauge 1.5-inch needle. A 22 gauge 3.5-inch Tuohy needle was then directed down towards the intralaminar space. It was advanced under lateral fluoroscopic guidance and loss of resistance was noted at a depth of 6 cm. Isovue-300 contrast 1 mL was injected in, which demonstrated epidural uptake pattern. She then underwent injection after negative aspiration of 40 mg Depo-Medrol, 4 mL of preservative free sodium chloride. Injection was well tolerated and reproduced a familiar radicular sensation down the right leg. DISPOSITION: 1. The patient is taken out into the discharge recovery area where she will be discharged home once discharge criteria have been met. 2. Follow up in the [facility] office in 2-4 weeks. I attest to the content of the Intraoperative Record and any orders documented therein. Any exceptions are noted below. KAYLEE
== END | disposition home or self-care (01) ==
LOC: X.SURG 12:54
PROVIDERS: ATTEND Physical Medicine & Rehabilitation
DX: M99.73 Connective tissue and disc stenosis of intervertebral foramina of lumbar region (principal); Z79.899 Other long term (current) drug therapy

== ENCOUNTER → 2017-10-06 | Outpatient (CLI) | payer OTHER ==
[~2017-10-06] MED LIST changes: -IOPAMIDOL INJ 61% 15 ML VIAL ONE; -LIDOCAINE HCL 1% MPF 5 ML VIAL ONE; -SODIUM CHLORIDE 0.9% INJ 10 ML VIAL ONE
== END | disposition home or self-care (01) ==
LOC: C.RDSM 12:23
PROVIDERS: ATTEND Physical Medicine & Rehabilitation Sports Medicine
DX: Z96.651 Presence of right artificial knee joint (principal); M17.12 Unilateral primary osteoarthritis, left knee

== ENCOUNTER → 2018-02-16 | Day surgery (SDC) | payer OTHER ==
[2018-02-11 12:04] VITALS: Ht 165.1 cm; Wt 77.3 kg
[~2018-02-16] VITALS: Ht 165.1 cm; Wt 77.3 kg
[~2018-02-16] MED LIST changes: +IOPAMIDOL INJ 61% 15 ML VIAL ONE; +LIDOCAINE HCL 1% MPF 5 ML VIAL ONE; +SODIUM CHLORIDE 0.9% INJ 10 ML VIAL ONE
--- NOTE | 2018-02-16 13:46 | [facility] Post Operative Brief Note ---
Immediate Operative Summary Operative Date Feb 16, 2018. Pre-Operative Diagnosis LUMBAR FORAMINAL STENOSIS WITH RIGHT L4 RADICULOPATHY Post-Operative Diagnosis SAME Procedure(s) Performed LUMBAR EPIDURAL STEROID INJECTION Surgeon DR. Lena LYNNE White Shoe Examiner Surgeon(s) None Estimated Blood Loss None Findings Consistent with Post-Op Diagnosis Specimens NA Anesthesia Type Local Complication(s) none Disposition Disposition:
--- NOTE | 2018-02-16 13:47 | Discharge Instructions ---
Discharge Instructions Date of Service Feb 16, 2018. Visit Reason for Visit: Lumbar Radiculopathy Discharge Discharge Diagnosis / Problem: right leg pain Discharge Goals Goal(s): Decrease discomfort, Improve function Medications Stopped Medications Name(s): No Ibuprofen for 3 days Activity Recommendations Activity Limitations: resume your previous activity Anesthesia . Post Anesthesia Instructions: If you have had General Anesthesia or IV Sedation: * Do not drive today. * Resume driving when surgeon permits. * Do not make important decisions or sign legal documents today. * Call surgeon for: 1. Temperature elevations greater than 101 degrees F. 2. Uncontrollable pain. 3. Excessive bleeding. 4. Persistent nausea and vomiting. 5. Medication intolerance (nausea, vomiting or rash). * For nausea and vomiting use only clear liquids such as: tea, soda, bouillon until nausea subsides, then gradually increase diet as tolerated. * If you have any concerns or questions, call your surgeon's office. If physician is unavailable and it is an emergency, call 911 or go to the nearest emergency room. . Diet Recommendations Recommended Home Diet: resume previous diet Procedures Procedures Performed: LUMBAR EPIDURAL STEROID INJECTION Pending Studies Studies pending at discharge: no Medical Emergencies . Who to Call and When: Medical Emergencies: If at any time you feel your situation is an emergency, please call 911 immediately. . Non-Emergent Contact Non-Emergency issues call your: Specialist . . "Provider Documentation" section prepared by Jayant Garza. .
[2018-02-16 13:50] VITALS: TEMP 37
--- NOTE | 2018-02-16 14:11 | OPERATIVE REPORT ---
DATE OF OPERATION: 02/16/2018 PREOPERATIVE DIAGNOSIS: Lumbar foraminal stenosis with right L4 radiculopathy. POSTOPERATIVE DIAGNOSIS: Lumbar foraminal stenosis with right L4 radiculopathy. PROCEDURE: Right paramedian L4-L5 interlaminar epidural steroid injection under fluoroscopic guidance. INDICATIONS: The patient is a 72-year-old white female who has received epidurals in the past and last one was done more than 4 months ago and she presents today for an epidural as the effectiveness has been wearing off. PHYSICAL EXAMINATION: GENERAL: Pleasant female seated comfortably. MUSCULOSKELETAL: Lumbar paraspinal muscles were palpated and noted be nontender. She had no significant limitations with forward flexion or extension. She has had normal lower extremity strength. Negative seated straight leg raises. Subjective sensation intact distally at the L4, L5, S1 dermatomes. Negative seated straight leg raises. CONSENT: Verbal and written consent was obtained from the patient. Risks and benefits were reviewed. Risks include but are not limited to epidural abscess, epidural hematoma, allergic reaction, dural puncture. The patient wishes to proceed. DESCRIPTION OF PROCEDURE: The patient was taken back to the special procedures room of the [facility] where she was maintained in a prone position. Backside was cleansed with Betadine x3 and a dry sterile dressing was applied. Fluoroscope was used to identify the L4-L5 intralaminar space. Overlying skin on the right side was anesthetized with 4 mL of lidocaine 1% with a 25-gauge 1.5-inch needle. A 22-gauge 3.5-inch Tuohy needle was then directed down towards the intralaminar space. It was advanced under lateral fluoroscopic guidance and loss of resistance was noted at a depth of 6.5 cm. Isovue-300 contrast 1 mL was injected in which demonstrated epidural uptake pattern which was confirmed with AP and lateral views. She then underwent injection after negative aspiration of 40 mg of Depo-Medrol and 4 mL of preservative-free sodium chloride. Injection was well tolerated and reproduced a transient radicular sensation down the leg. DISPOSITION: 1. The patient is taken out into the discharge recovery area where she will be discharged home once discharge criteria have been met. 2. Follow up in the [facility] office in 2-4 weeks. I attest to the content of the Intraoperative Record and any orders documented therein. Any exception s are noted below.
[2018-02-16 14:16] VITALS: BP 116/65; PULSE 69; O2SAT 98
== END | disposition home or self-care (01) ==
LOC: X.SURG 12:33
PROVIDERS: ATTEND Physical Medicine & Rehabilitation
DX: M54.16 Radiculopathy, lumbar region (principal); M48.061 Spinal stenosis, lumbar region without neurogenic claudication